=== PATIENT | female | born 1950 | race Caucasian/White ===

== ENCOUNTER 2018-07-18 10:27 | Outpatient (CLI) | payer BC, MEDICARE ==
[~2018-07-18 10:27] MED LIST: ISOVUE-370 76%-LOCM 1 ML ONE
== END 2018-07-18 10:28 | disposition home or self-care (01) ==
LOC: BICCT 10:27
PROVIDERS: ATTEND Internal Medicine Hematology & Oncology
DX: C50.919 Malignant neoplasm of unspecified site of unspecified female breast (principal); M79.602 Pain in left arm; R07.9 Chest pain, unspecified; R59.0 Localized enlarged lymph nodes
CPT/HCPCS: 71260; 82565

== ENCOUNTER 2019-09-19 09:57 | Outpatient (CLI) | payer OTHER ==
--- NOTE | 2019-09-19 10:34 | RAD ---
THREE VIEWS LUMBAR SPINE: HISTORY: Previous surgery. Back pain. FINDINGS: Lateral neutral, lateral flexion and lateral extension views demonstrate bilateral transpedicular scr ews at L3, L4 and L5. No perihardware lucency. Disc prosthesis at L3-L4 and L4-L5. IVC filter and vascular stent are noted. Hip prosthesis is identified. Five lumbar-type vertebrae. Vertebral body height is maintained. No fracture. Moderate to severe dege nerative change at L1-L2. Extensive degenerative changes in the distal thoracic spine IMPRESSION: Multilevel degenerative changes of the distal thoracic spine and upper lumbar spine. Transcribed Date/Time: 09/19/2019 11:03 AM
== END 2019-09-19 09:58 | disposition home or self-care (01) ==
LOC: TBSIIMAG 09:57
PROVIDERS: ATTEND Neurological Surgery
DX: M54.5 Low back pain (principal); M47.816 Spondylosis without myelopathy or radiculopathy, lumbar region; M47.814 Spondylosis without myelopathy or radiculopathy, thoracic region
CPT/HCPCS: 72100

== ENCOUNTER 2024-01-11 12:21 | Outpatient (CLI) | payer OTHER | END 2024-01-11 12:22 | disposition home or self-care (01) | LOC: BICCT 12:21 | PROVIDERS: ATTEND Urology | DX: N28.89 Other specified disorders of kidney and ureter (principal); N20.0 Calculus of kidney; N39.0 Urinary tract infection, site not specified; N28.1 Cyst of kidney, acquired; K76.89 Other specified diseases of liver; K57.30 Diverticulosis of large intestine without perforation or abscess without bleeding | CPT/HCPCS: 74178 ==

== ENCOUNTER 2024-04-10 09:00 | Day surgery (SDC) | payer OTHER ==
[2024-04-02 16:12] VITALS: BMI 26.2
[2024-04-10] MEDS ORDERED: Iopamidol 30 ML ONE (10:35)
[2024-04-10] MEDS ORDERED: Rocuronium Bromide 10 MG/ML (10ML VIAL) ONE (10:43)
[2024-04-10] MEDS ORDERED: Lidocaine 1% PF 5 ML VIAL ONE (10:43)
[2024-04-10] MEDS ORDERED: PROPOFOL 20 ML ONE (10:43)
[2024-04-10] MEDS ORDERED: fentaNYL PF 100 MCG/2 ML SYRINGE ONE (10:44)
[2024-04-10] MEDS ORDERED: Meropenem 1 GM in Sodium Chloride 0.9% 100 ML IVPB SCH (10:45)
[2024-04-10 11:21] LABS: Prothrombin Time 13.4 sec (12.0-14.7)
[2024-04-10 11:22] LABS: PTT 29.7 sec (22.9-36.1)
[2024-04-10] MEDS ORDERED: ePHEDrine Sulfate 50 MG/10 ML VIAL ONE (11:29)
[2024-04-10] MEDS ORDERED: SUGAMMADEX SODIUM 200 MG/2 ML VIAL ONE (11:58)
[2024-04-10] MEDS ORDERED: Dexamethasone 4 mg/ml Vial ONE (11:58)
[2024-04-10] MEDS ORDERED: Ondansetron PF 4 MG/2 ML Vial ONE (11:58)
[2024-04-10] MEDS ORDERED: Oxybutynin 5 MG TAB ONE (12:53)
[2024-04-10] MEDS ORDERED: Phenazopyridine HCl 100 MG TAB ONE (12:53)
== END 2024-04-10 15:12 | disposition home or self-care (01) ==
LOC: SDC 09:00
PROVIDERS: ATTEND Urology
PROC: 0TC78ZZ Extirpation of Matter from Left Ureter, Via Natural or Artificial Opening Endoscopic (ICD-10-PCS; principal; 2024-04-10)
PROC: 0T778DZ Dilation of Left Ureter with Intraluminal Device, Via Natural or Artificial Opening Endoscopic (ICD-10-PCS; 2024-04-10)
DX: N20.0 Calculus of kidney (principal); I10 Essential (primary) hypertension; J45.909 Unspecified asthma, uncomplicated; J18.9 Pneumonia, unspecified organism; G89.29 Other chronic pain; C34.90 Malignant neoplasm of unspecified part of unspecified bronchus or lung; K58.9 Irritable bowel syndrome, unspecified; M06.9 Rheumatoid arthritis, unspecified; M54.16 Radiculopathy, lumbar region; N39.0 Urinary tract infection, site not specified; Z90.710 Acquired absence of both cervix and uterus; Z98.84 Bariatric surgery status; Z79.899 Other long term (current) drug therapy; Z90.13 Acquired absence of bilateral breasts and nipples; Z91.040 Latex allergy status
CPT/HCPCS: 52356; 74420; 82365; 85610; 85730; C1747; C1769; C2617; J1100; J2185; J2405; J2704; J3490; Q9967; 88300

== ENCOUNTER 2024-04-17 14:15 | Outpatient (CLI) | payer OTHER | END 2024-04-17 14:16 | disposition home or self-care (01) | LOC: CT 14:15 | PROVIDERS: ATTEND Urology | DX: N20.0 Calculus of kidney (principal); J98.11 Atelectasis; K76.89 Other specified diseases of liver; N28.1 Cyst of kidney, acquired; Z96.643 Presence of artificial hip joint, bilateral; Z98.1 Arthrodesis status; Z96.0 Presence of urogenital implants | CPT/HCPCS: 74176 ==

== ENCOUNTER 2024-10-11 12:47 | Outpatient (CLI) | payer OTHER | END 2024-10-11 12:48 | disposition home or self-care (01) | LOC: BICCT 12:47 → CT 12:48 | PROVIDERS: ATTEND Internal Medicine Hematology & Oncology | DX: C34.32 Malignant neoplasm of lower lobe, left bronchus or lung (principal); R31.0 Gross hematuria; J98.4 Other disorders of lung; R91.1 Solitary pulmonary nodule; N28.1 Cyst of kidney, acquired; K76.89 Other specified diseases of liver; Z85.3 Personal history of malignant neoplasm of breast | CPT/HCPCS: 71260; 74177; J1642 ==